=== PATIENT | female | born 2000 | race Asian ===

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

== ENCOUNTER 2018-11-08 01:11 | Emergency (ER) | payer OTHER ==
[~2018-11-08] VITALS: Ht 165.1 cm; Wt 56.7 kg
[2018-11-08 02:42] VITALS: BP 122/55; TEMP 98.5
== END 2018-11-08 02:46 | disposition home or self-care (01) ==
LOC: ED 01:11
DX: J06.9 Acute upper respiratory infection, unspecified (principal); R51 Headache
CPT/HCPCS: 87651; 99283

== ENCOUNTER 2023-03-08 07:02 | Emergency (ER) | payer OTHER ==
[~2023-03-08] VITALS: Ht 165.1 cm; Wt 63.5 kg
[2023-03-08 09:05] VITALS: BP 118/71; TEMP 98.6
== END 2023-03-08 09:05 | disposition home or self-care (01) ==
LOC: ED 07:02
DX: J10.1 Influenza due to other identified influenza virus with other respiratory manifestations (principal)
CPT/HCPCS: 87502; 87635; 87651; 99282; U0003

== ENCOUNTER 2023-07-02 17:55 | Outpatient (CLI) | payer OTHER ==
[2023-07-02 19:18] LABS: PLATELET COUNT 432 K/uL (152-353)
[2023-07-02 19:33] LABS: POTASSIUM 3.5 mmol/L (3.6-5.2)
== END 2023-07-02 19:41 | disposition home or self-care (01) ==
LOC: LABW 17:55
PROVIDERS: ATTEND Dermatology Procedural Dermatology
DX: Z79.899 Other long term (current) drug therapy (principal)
CPT/HCPCS: 36415; 80053; 80074; 85027; 86480

== ENCOUNTER 2023-11-09 16:14 | Outpatient (CLI) | payer OTHER ==
[2023-11-09 16:23] LABS: PLATELET COUNT 498 K/uL (152-353)
== END 2023-11-09 19:49 | disposition home or self-care (01) ==
LOC: LAB 16:14
PROVIDERS: ATTEND Dermatology Procedural Dermatology
DX: Z79.899 Other long term (current) drug therapy (principal)
CPT/HCPCS: 36415; 85008; 85027

== ENCOUNTER 2023-11-24 18:12 | Outpatient (CLI) | payer OTHER ==
[2023-11-24 20:27] LABS: PLATELET COUNT 460 K/uL (152-353)
== END 2023-11-24 19:11 | disposition home or self-care (01) ==
LOC: LABW 18:12
PROVIDERS: ATTEND Dermatology Procedural Dermatology
DX: Z79.899 Other long term (current) drug therapy (principal)
CPT/HCPCS: 36415; 84702; 85027